=== PATIENT | female | born 1975 | race Caucasian/White ===

== ENCOUNTER 2019-02-10 13:39 | Emergency (ER) | payer SELFPAY ==
[~2019-02-10] VITALS: Ht 167.6 cm; Wt 70.3 kg
[2019-02-10] MEDS ORDERED: AMPH20TA2 PO (13:57)
[2019-02-10] MEDS ORDERED: DEXAMETHASONE 4 MG/ML SDV (DECADRON) IM ONE (14:00)
--- NOTE | 2019-02-10 14:15 | ED Integumentary General ---
General Chief Complaint: Skin/Wound Problems Stated Complaint: PT STATES SHE IS COVERED IN POISON TAWNYA Nursing Triage Note: Pt arrived by private car with chief complaint of poison bianca. Pt stated she went fishing about one week ago and that is when it appeared. Located on posterior left forearm and lateral left wrist. Pt stated it has been spreading to left thigh. Pt had left forearm wrapped in gauze and stated she was wrapping it with bandaids but it was draining so much that she had to start to wrap it. Pt stated she has tried everything from calamine lootion to bleach/water mixture and nothing is working. Source: patient Exam Limitations: no limitations History of Present Illness Date Seen by Provider: Feb 10, 2019 Time Seen by Provider: 14:09 Initial Comments Patient was exposed to poison bianca one week ago on a fishing trip. She complains of redness pain and drainage from her left forearm. She denies throat swelling or shortness of air. No history of poison bianca. Forearm is draining so much that she has to wrap with gauze. Allergies and Home Medications Allergies Coded Allergies: codeine (Verified Allergy, Unknown, hives, 02/10/19) Home Medications Dextroamphetamine/Amphetamine 20 Mg Tablet, 20 MG PO for bid, (Reported) Methylprednisolone 4 Mg Tab.ds.pk, 4 MG PO UD PER DOSE PACK INSTRUCTIONS Prescribed by: EDGARD GOMEZ on 02/10/19 1416 Patient Home Medication List Home Medication List Reviewed: Yes Review of Systems Review of Systems Constitutional: no symptoms reported Respiratory: no symptoms reported Cardiovascular: no symptoms reported Skin: pruritus, rash All Other Systems Reviewed Negative Unless Noted: Yes Past [id number]-Huwbnv-Unfwjn Hx Patient Social History Recent Foreign Travel: No Contact w/Someone Who Travel: No Recent Infectious Disease Expo: No Recent Hopitalizations: No Physical Abuse: No Sexual Abuse: No Mistreated: No Fear: No Seasonal Allergies Seasonal Allergies: No Past Medical History Surgeries: Yes Section Respiratory: No Cardiac: No Neurological: No Genitourinary: No Gastrointestinal: No Musculoskeletal: No Endocrine: No HEENT: No Cancer: No Psychosocial: No Integumentary: No Blood Disorders: No Physical Exam Vital Signs Vital Signs - First Documented 02/10/19 13:47 Temp 98.4 Pulse 92 Resp 22 B/P (MAP) 125/84 (98) Pulse Ox 99 O2 Delivery Room Air Capillary Refill : Less Than 3 Seconds General Appearance: WD/WN, no apparent distress Neck: supple Cardiovascular: regular rate, rhythm Respiratory: lungs clear Extremities: normal range of motion, non-tender Neurologic/Psychiatric: alert, normal mood/affect Skin: normal color, warm/dry, other (redness and blistering to lateral aspect of left forearm. There is an open wound that is weeping.) Progress/Results/Core Measures Results/Orders My Orders Orders - EDGARD GOMEZ MD Dexamethasone Injection (Decadron Inject (02/10/19 14:00) Medications Given in ED Current Medications Medications Dose Ordered Sig/Can Route Start Time Stop Time Status Last Admin Dose Admin Dexamethasone Sodium Phosphate 15 mg ONCE ONCE IM 02/10/19 14:00 02/10/19 14:01 DC 02/10/19 14:13 15 MG Vital Signs/I&O 02/10/19 02/10/19 13:47 14:20 Temp 98.4 98.2 Pulse 92 100 Resp 22 20 B/P (MAP) 125/84 (98) 127/86 (100) Pulse Ox 99 97 O2 Delivery Room Air Room Air Blood Pressure Mean: 98 Departure Impression Primary Impression: Allergic contact dermatitis Disposition: HOME, SELF-CARE Condition: Stable Departure-Patient Inst. Decision time for Depature: 14:10 Referrals: NO,LOCAL PHYSICIAN (PCP/Family) Primary Care Physician Patient Instructions: Contact Dermatitis (DC) Add. Discharge Instructions: Keep arm elevated. All discharge instructions reviewed with patient and/or family. Voiced understanding. Scripts Methylprednisolone (Medrol) 4 Mg Tab.ds.pk 4 MG PO UD for 6 Days, #21 PKG PER DOSE PACK INSTRUCTIONS Prov: EDGARD GOMEZ MD 02/10/19 EDGARD GOMEZ MD Feb 10, 2019 14:15
[2019-02-10] MEDS ORDERED: METH4TAB PO (14:16)
[2019-02-10 14:20] VITALS: BP 127/86
== END 2019-02-10 14:20 | disposition home or self-care (01) ==
LOC: ER FS 13:41
DX: L23.9 Allergic contact dermatitis, unspecified cause (principal); Z88.5 Allergy status to narcotic agent; Z79.52 Long term (current) use of systemic steroids; Z98.890 Other specified postprocedural states